=== PATIENT | female | born 2000 | race Caucasian/White ===

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

== ENCOUNTER 2023-02-07 08:59 | Emergency (ER) | payer OTHER, SELFPAY ==
[2023-02-07] VITALS (7 sets, daily range): BP systolic 125–183; BP diastolic 65–99; PULSE 97–125; RESP 16–20; TEMP 37.3; O2SAT 98–100; BMI 37.1
--- NOTE | 2023-02-07 10:25 | ED_ITS ---
HPI - Head Injury General Chief complaint: Head Injury Stated complaint: Possible concussion; hit back on couch Time Seen by Provider: 02/07/23 10:18 Source: patient Mode of arrival: Family Vehicle History of Present Illness HPI Narrative: This is a 22-year-old female with no known medical issues who complains of hitting her head last night. Patient states she was rough-housing, she sort of fell backwards and hit her head on the back edge of the couch which has would. Patient states she was sort of stunned for a minute. She states she went to bed and then when she woke up this morning woke up with a headache, she is had ibuprofen around 5:00 a.m. which was helpful. She is had occasional waves of nausea but no vomiting. She denies any neck pain. No numbness, tingling or weakness. Patient denies any loss of consciousness. No lightheadedness or passing out. No chest pain, no shortness of breath. No diarrhea or constipation, no black or bloody stools. No loss of bowel or bladder control. Patient denies any daily medications. No anticoagulants. No prior surgeries. No known drug allergies. Vapes tobacco, occasional alcohol, no illicit. 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 She is not had similar symptoms in the past. Related Data Previous Rx's Medication Instructions Recorded ondansetron 4 mg disintegrating 4 mg PO Q6H PRN nausea and 02/07/23 tablet vomiting #7 tabs Allergies Allergy/AdvReac Type Severity Reaction Status Date / Time No Known Drug Allergies Allergy Verified 02/11/19 12:27 Review of Systems Review of Systems ROS Unobtainable: All systems reviewed & are unremarkable except as noted in HPI and below Patient History Social History Smoking Status: Never smoker Smoking Status: Never smoker tobacco type: vaping alcohol intake frequency: 0-2 drinks per day Substance Use Type: does not use Exam Narrative Exam Narrative: GEN: Patient appears in mild distress. HEAD: No evidence of trauma, no raccoon/Lombardo sign. NECK: Nontender, painless range of motion, trachea midline Negative Nexus criteria, there is no midline line tenderness, distracting injury, altered mental status, neuro deficit, recent EtOH. EYES: PERRLA, EOMI ENT: External inspection normal, trachea is midline, TM's are normal no hemotypanum, Nares are clear, no septal hematoma, no dental or oral injury, airway is normal and with normal occlusion, No bony tenderness RESP: Chest is nontender and has symmetric movement, no ecchymosis, breath sounds are normal no crackles, wheezes or rales CVS: Heart sounds are normal, no murmur noted, No JVD. ABG/GI: Nontender, soft, normal bowel sounds, no distention, no organomegaly. NEURO: Oriented AOx3, neuro is grossly intact, sensation and motor is normal all 4 extremities moving, cranial nerves II through XII are intact, zmtyhf-iuew-adkese and heel-willett normal bilaterally, GCS is 15 PSYCH: Normal mood and affect SKIN: Intact, warm and dry, no crepitus and without decubitus BACK: No CVA tenderness, no vertebral tenderness, no step-off's, no crepitus EXT: Atraumatic, hips are nontender, no pedal edema, normal color and temperature, normal range of motion of extremities with normal tendon exam, 2+ pulses in all four extremities Initial Vital Signs Initial Vital Signs: Vital Signs Temperature 99.1 F 02/07/23 09:05 Pulse Rate 125 H 02/07/23 09:05 Respiratory Rate 20 02/07/23 09:05 Blood Pressure 147/89 H 02/07/23 09:05 Pulse Oximetry 98 02/07/23 09:05 Oxygen Delivery Method Room Air 02/07/23 09:05 Scores GCS Christian coma scale eye opening: Spontaneous Christian coma scale verbal response: Orientated Christian coma scale motor response: Obey commands Clifton coma scale total score: 15 Nexus Score for C-Spine Focal Neurologic deficit present: No Midline spinal tenderness present: No Altered level of conciousness present: No Intoxication present: No Distracting Injury Present: No Nexus Criteria for C-spine: 0 Course Orders Ordered: Discontinued Medications Ondansetron HCl (Ondansetron 4 Mg Odt) 4 mg SL NOW ONE Stop: 02/07/23 10:31 Last Admin: 02/07/23 10:52 Dose: 4 mg Documented By: MIRIAM Vital Signs Vital signs: Vital Signs - 8 hr 02/07/23 10:30 02/07/23 10:31 02/07/23 10:31 Pulse Rate 99 H 97 H Respiratory Rate Blood Pressure 183/86 H Pulse Oximetry 100 99 Oxygen Delivery Method 02/07/23 10:53 Pulse Rate 99 H Respiratory Rate 16 Blood Pressure 125/65 Pulse Oximetry 99 Oxygen Delivery Method Room Air MDM - Head Injury MDM Narrative Medical decision making narrative: This is a 22-year-old female with symptoms consistent with concussion. No red flag symptoms necessitating imaging today. Patient does not have any acute neurologic changes. No anticoagulation. She is had some nausea but no vomiting. She had ibuprofen earlier today which was somewhat helpful. Was given a dose of Zofran here in the department. Patient offered prescription for Zofran as needed if helpful for nausea. Return precautions and decreased ac tivity. 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 With precautions in terms of return to activity. Discharge Plan Departure Patient Disposition: Home Clinical Impression: Concussion Instructions: Concussion Activity Restrictions/Additional Instructions: You may return to work as her symptoms improve. You may increase your activity level as tolerated, if symptoms worsen please return your activity level to the prior for at least 24 hours. You may take Tylenol up to a 1000 mg and/or ibuprofen up to 800 mg every 8 hours. You may take Zofran/ondansetron every 6 hours as needed for nausea. Prescription sent to [facility] in [place]. Please return for rapidly worsening or severe headaches, vomiting, new numbness, tingling or weakness, loss of bowel or bladder control, passing out, new neck or back pain, chest pain or shortness of breath or other new or concerning changes. Prescriptions: New ondansetron 4 mg tablet,disintegrating 4 mg PO Q6H PRN (Reason: nausea and vomiting) Qty: 7 0RF Referrals: Miscellaneous,Doctor, MD [Primary Care Provider] - Stand Alone Forms: Patient Portal/API, Work Release Note
[2023-02-07] MEDS: ONDANSETRON 4 MG ODT SL (10:52)
== END 2023-02-07 10:56 | disposition home or self-care (01) ==
PROVIDERS: Emergency Provider Emergency Medicine
DX: S06.0X0A Concussion without loss of consciousness, initial encounter (principal); W18.30XA Fall on same level, unspecified, initial encounter
CPT/HCPCS: 99282; 99283

== ENCOUNTER 2023-02-09 12:31 | Emergency (ER) | payer OTHER, SELFPAY ==
[2023-02-09 12:34] VITALS: BP 142/77; PULSE 96; RESP 15; TEMP 36.4; O2SAT 98
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
[2023-02-09 12:53] VITALS: BMI 37.1
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
[2023-02-09 13:36] LABS: Add Manual Diff / Slide Review NO; Basophils Absolute Auto 0 /uL (0-100); Basophils Percent Auto 0.3 % (0-2); Eosinophils Absolute Auto 100 /uL (0-450); Eosinophils Percent Auto 0.7 % (2-4); Hematocrit 40.8 % (36-46); Hemoglobin 13.9 g/dL (12.0-16.0); Lymphocytes Absolute Auto 1600 /uL (1100-4500); Mean Corpuscular HGB Conc 34.1 % (30-36); Mean Corpuscular Hemoglobin 30.3 PG (26-34); Mean Corpuscular Volume 88.8 fL (80-100); Monocytes Absolute Auto 1000 /uL (0-900); Monocytes Percent Auto 6.8 % (3-14); Neutrophils Absolute Auto 11700 /uL (1500-7000); Neutrophils Percent Auto 81.2 % (50-75); Platelet Count 330 X10^3/uL (150-400); Red Cell Distribution Width 13.5 % (11.6-14.8); White Blood Cell Count 14.4 X10^3/uL (4.5-11.0)
[2023-02-09] MEDS: ACETAMINOPHEN 325 MG TABLET 975 MG PO (13:39)
[2023-02-09] MEDS: KETOROLAC 30 MG/ML VIAL 15 MG IV (13:39)
[2023-02-09] MEDS: DEXAMETHASONE 10 MG/ML VIAL IV (13:39)
[2023-02-09] MEDS: ONDANSETRON 4 MG/2 ML INJ IV (13:40)
[2023-02-09] MEDS: SODIUM CHLORIDE 0.9% 1,000 ML 1000 ML IV (13:40)
[2023-02-09 13:48] LABS: Alanine Aminotransferase 25 IU/L (<35); Albumin 4.6 g/dL (3.5-5.0); Albumin Globulin Ratio 1.4 (1.0-2.8); Alkaline Phosphatase 76 U/L (38-126); Aspartate Aminotransferase 26 IU/L (14-36); BUN Creatinine Ratio 17.1 (6-22); Bilirubin Total 0.6 mg/dL (0.2-1.3); Blood Urea Nitrogen 12 mg/dL (7-17); Calcium 8.8 mg/dL (8.4-10.2); Carbon Dioxide 25 mmol/L (22-32); Chloride 102 mmol/L (98-107); Estimated Glomerular Filt Rate > 60 mL/min (>60); Globulin 3.2 g/dL (1.7-4.1); Glucose 97 mg/dL (70-100); HEMOLYSIS < 15 (0-50); Magnesium 1.9 mg/dL (1.6-2.3); Potassium 3.5 mmol/L (3.4-5.1); Sodium 139 mmol/L (137-145); Total Protein 7.8 g/dL (6.3-8.2)
[2023-02-09 14:04] LABS: HCG Quantitative /Beta subunit < 2.4 mIU/mL
[2023-02-09 15:16] LABS: Bacteria Urine Moderate (10-30); Culture Indicated Urine Specimen Cultured; RBC Urine 0-1/HPF (0-5/HPF); Squamous Epithelial Cell Urine 1-5 /HPF (0-5/HPF); WBC Urine 1-5/HPF (0-5/HPF)
[2023-02-09] MEDS: cefTRIAXone 1,000 MG VIAL 1000 MG IV (15:35)
[2023-02-09 16:00] VITALS: BP 137/76; PULSE 88; RESP 17; O2SAT 99
== END 2023-02-09 16:01 | disposition home or self-care (01) ==
PROVIDERS: Emergency Provider Nurse Practitioner Critical Care Medicine
DX: F07.81 Postconcussional syndrome (principal); S09.90XD Unspecified injury of head, subsequent encounter; X58.XXXD Exposure to other specified factors, subsequent encounter; N39.0 Urinary tract infection, site not specified; R11.2 Nausea with vomiting, unspecified
CPT/HCPCS: 36415; 70450; 72125; 80053; 81003; 81015; 83735; 84702; 85025; 87086; 96374; 96375; 99284; J0696; J1100; J1885; J2405

== ENCOUNTER 2023-04-17 08:40 | Emergency (ER) | payer OTHER, SELFPAY ==
--- NOTE | 2023-04-17 08:43 | ED.GENADULT ---
HPI - General Adult General Chief complaint: Upper Respiratory Symptoms Stated complaint: Sore throat, L ear pain since Time Seen by Provider: 04/17/23 08:43 History of Present Illness HPI narrative: 22-year-old female nonsmoker presents with a few days of runny nose, nasal congestion, sore throat, dry hacking cough and left ear pain. She denies any sputum production. She has no nausea, vomiting or diarrhea. She denies any dysuria, frequency or urgency. She is been a bit achy and has subjective fever Related Data Allergies Allergy/AdvReac Type Severity Reaction Status Date / Time No Known Drug Allergies Allergy Verified 04/17/23 09:00 Review of Systems Review of Systems Narrative: GENERAL: See HPI HEENT: See HPI RESPIRATORY: See HPI CARDIOVASCULAR: Denies chest pain, palpitations, orthopnea, edema, GASTROINTESTINAL: Denies nausea, vomiting, abdominal pain, diarrhea, constipation, melena. : Denies dysuria, frequency, incontinence, hematuria, urinary retention. MUSCULOSKELETAL: denies weakness, joint pain, or bony pain SKIN: Denies rash, skin lesions, or other NEUROLOGIC: Denies weakness, headache, numbness, change in speech, confusion, seizures, incoordination. PSYCHIATRIC: No concerning psychosocial issues. 12 point review of systems is negative except for those stated above Patient History Social History Smoking Status: Never smoker Smoking Status: Never smoker tobacco type: vaping alcohol intake frequency: 0-2 drinks per day Substance Use Type: does not use Exam Narrative Exam Narrative: GEN: AOx3 and in mild distress EYES: Pupils are equal, round, and reactive to light and accommodation. Extraoccular muscles are intact bilaterally. There is no subconjunctival hemorrhage or exudate. ENT: Clear postnasal drip, minimal tonsillar swelling, no obvious erythema or exudate, airway pain, controlling secretions, tender anterior nodes. Bilateral tympanic membranes are clear, flat with normal landmarks CHEST: Lungs are clear to auscultation bilaterally and free of wheezes, rales, or rhonchi. Heart rate is regular rhythm, there are no murmurs, clicks, rubs, or gallops. There is no chest wall tenderness. ABD: Abdomen is soft and nontender. There is no guarding or rebound. Bowel sounds are normal in all 4 quadrants. There is no mass or organomegaly. EXT: Full painless ROM of all extremities with no loss of sensation or strength. SKIN: Warm, pink, and dry. No erythema or rash Initial Vital Signs Initial Vital Signs: Vital Signs Temperature 97.8 F 04/17/23 08:57 Pulse Rate 119 H 04/17/23 08:57 Respiratory Rate 17 04/17/23 08:57 Blood Pressure 170/97 H 04/17/23 08:57 Pulse Oximetry 100 04/17/23 08:57 Oxygen Delivery Method Room Air 04/17/23 08:57 Course Orders Ordered: ED Orders 04/17/23 08:44 Strep Grp A by PCR Rapid Stat Throat Culture Stat Vital Signs Vital signs: Vital Signs - 8 hr 04/17/23 08:57 Temperature 97.8 F Pulse Rate 119 H Respiratory Rate 17 Blood Pressure 170/97 H Pulse Oximetry 100 Oxygen Delivery Method Room Air Medical Decision Making Lab Data Labs: Lab Results 04/17/23 Range/Units 08:45 Group A Strep (PCR) Negative (Negative) MDM Narrative Medical decision making narrative: [22] year old patient presents with various upper respiratory symptoms including nasal congestion, runny nose, sore throat, cough and ear pain Multiple etiologies for patient's symptoms considered including, but not limited to: [Strep versus other bacterial source versus viral] Prior Charts reviewed in our EMR Primary Historian: patient Labs reviewed and interpreted by myself: Rapid strep notes, throat culture pending Patient with reassuring history and physical exam, no respiratory distress or hypoxemia. Widespread symptoms highly suggestive of a viral source, rapid strep is negative, culture is pending. Patient encouraged to take various [id number] cough cold and flu medications Findings and discharge diagnosis discussed with patient/family followed by verbalization of understanding Return precautions discussed with patient/family whom verbalize understanding of diagnosis and plan Discharge Plan Departure Patient Disposition: Home Clinical Impression: Pharyngitis Instructions: Common Cold Activity Restrictions/Additional Instructions: *You have been diagnosed with [various symptoms due to viral upper respiratory infection] your rapid strep was negative and a throat culture has been sent to the lab which usually takes about 3 days to return. If that culture demonstrates the need for antibiotics we will call you, otherwise you will not receive a call *What to do: *Please consider the use of [id number] cough cold and flu medications as directed * your history and physical exam are very reassuring and there is no indication that the symptoms are due to a bacterial infection, therefore there is no indication for antibiotics. *Please follow up with your primary care provider in 2-3 days, call for an appointment. Let them know you were seen in the Emergency Department and that we ask that you be seen in follow up. We will electronically transmit a record of today's note if your PCP is in our system *If you do not have a primary care provider please contact the [facility] Resource line at [phone]. They will ask some questions about your medical history and help get you set up with a doctor in the community. *Return to Emergency Department if you should have any new, worsening or concerning symptoms increased work of breathing with flaring of nostrils, using belly to breathe, persistent vomiting, or other bothersome symptoms Referrals: Miscellaneous,Doctor, MD [Primary Care Provider] - Stand Alone Forms: Patient Portal/API, Work Release Note
[2023-04-17 08:57] VITALS: BP 170/97; PULSE 119; RESP 17; TEMP 36.6; O2SAT 100; BMI 37.1
[2023-04-17 09:13] LABS: Strep Grp A by PCR Rapid Negative (Negative)
[2023-04-17 09:21] VITALS: BP 155/70; PULSE 110; RESP 17; O2SAT 99
== END 2023-04-17 09:22 | disposition home or self-care (01) ==
PROVIDERS: Emergency Provider Emergency Medicine
DX: J02.9 Acute pharyngitis, unspecified (principal)
CPT/HCPCS: 87070; 87077; 87147; 87651; 99282